=== PATIENT | male | born 1970 | race African-American/Black ===

== ENCOUNTER 2025-02-14 05:47 | Emergency (ER) | payer OTHER ==
[~2025-02-14] VITALS: Ht 180.3 cm; Wt 90.0 kg
[2025-02-14 05:53] VITALS: O2SAT 100
[2025-02-14 06:23] VITALS: TEMP 36.9
[2025-02-14] MEDS: MORPHINE SULFATE 4 MG/ML INJ (FOR IV/IM USE) IV ONE (06:35)
[2025-02-14 06:54] LABS: CALCIUM 9.2 mg/dL (8.7-10.4); CARBON DIOXIDE 26 mEq/L (21-32)
[2025-02-14 06:55] LABS: BASOPHILS % 0.4 % (0.0-2.0); CHLORIDE 108 mEq/L (98-107); EOSINOPHILS % 3.3 % (0.0-5.0); HEMOGLOBIN. 15.8 g/dL (14.0-18.0); LYMPHOCYTES % 21.6 % (20.0-50.0); MEAN CORPUSCULAR HEMOGLOBIN 30.2 pg (28.0-32.0); MEAN CORPUSCULAR HGB CONC 34.3 g/dL (31.0-37.0); MEAN CORPUSCULAR VOLUME 87.9 fL (80.0-94.0); MEAN PLATELET VOLUME 8.6 fl (7.4-10.4); MONOCYTES % 7.3 % (2.0-8.0); NEUTROPHILS % 67.4 % (40.0-76.0); PLATELET 195 x1000/uL (130-400); POTASSIUM 3.5 mEq/L (3.5-5.1); RED BLOOD CELL COUNT 5.23 mill/uL (4.7-6.1); RED CELL DISTRIBUTION WIDTH 13.4 % (11.6-14.6); SODIUM 142 mEq/L (136-145); WHITE BLOOD COUNT 5.5 x1000/uL (4.5-11.0)
[2025-02-14 06:59] LABS: CREATININE 1.1 mg/dL (0.6-1.3); GLUCOSE 112 mg/dL (70-105); UREA NITROGEN BLOOD 10 mg/dL (9-23)
[2025-02-14 07:03] LABS: TROPONIN I HIGH SENSITIVITY 5 ng/L (3.0-53)
[2025-02-14] MEDS: KETOROLAC 30MG/ML VIAL IV ONE (08:19)
[2025-02-14] MEDS ORDERED: IBUP-2028 PO (10:21)
[2025-02-14 10:25] VITALS: BP 162/95; PULSE 58; RESP 17; O2SAT 99
== END 2025-02-14 10:29 | disposition home or self-care (01) ==
LOC: ER 05:47 → CANBEDREQ 11:08
DX: M54.50 Low back pain, unspecified (principal); I10 Essential (primary) hypertension; F12.90 Cannabis use, unspecified, uncomplicated; Z79.899 Other long term (current) drug therapy
CPT/HCPCS: 99285; 96374; 71045; 96375; 80048; 85025; 84484; 36415; 72100; J1885; J2270